=== PATIENT | male | born 1970 | race Two or more races ===

== ENCOUNTER 2016-07-27 03:08 | Emergency (ER) | payer OTHER ==
[~2016-07-27] VITALS: Ht 170.2 cm; Wt 59.0 kg
[2016-07-27] MEDS ORDERED: OLANZAPINE 5 MG TABLET PO ONE (04:00)
[2016-07-27] MEDS ORDERED: OLANZAPINE 5 MG TABLET ONE (04:13)
--- NOTE | 2016-07-27 04:35 | NUR ---
Patient discharged to home in stable conditon. Written and verbal after care instructions given. Patient verbalizes understanding of instructions.
== END 2016-07-27 04:36 | disposition home or self-care (01) ==
LOC: ER 03:15
DX: F29 Unspecified psychosis not due to a substance or known physiological condition (principal); F32.9 Major depressive disorder, single episode, unspecified; F41.9 Anxiety disorder, unspecified
CPT/HCPCS: 99284; A4663